=== PATIENT | female | born 1950 | race Caucasian/White ===

== ENCOUNTER → 2017-09-24 | Outpatient (CLI) | payer OTHER, MEDICARE | LOC: FIMAGING 11:50 | PROVIDERS: ATTEND Family Medicine Geriatric Medicine | DX: Z12.31 Encounter for screening mammogram for malignant neoplasm of breast (principal) ==

== ENCOUNTER → 2017-10-08 | Outpatient (CLI) | payer OTHER, MEDICARE | LOC: FIMAGING 12:42 | PROVIDERS: ATTEND Family Medicine Geriatric Medicine | DX: N63.22 Unspecified lump in the left breast, upper inner quadrant (principal) ==